=== PATIENT | female | born 1980 | race Caucasian/White ===

== ENCOUNTER 2025-07-09 11:53 | Emergency (ER) | payer OTHER, SELFPAY ==
--- OUTSIDE RECORDS SUMMARY | 2025-03-29 03:47 | XMS_ITS | Continuity of Care Document ---
Author Organization [facility], [facility] Address [address] [place] [address] Phone Care Team Providers Care Watch Guard Gate Name Role Phone Shayna Mon OD Unavailable Unavailabl e Allergies, Adverse Reactions, Alerts Substance Reaction Status Criticality No Known Allergies Active No Inform ation Medications Medication Instructions Dosage Effective Dates (start - stop) Status Comments losartan 25 mg tablet take 1 tablet by o ral route every day 25 MG - Active spironolactone 25 mg tablet take 1 tablet by oral route every day 25 MG - Active metformin 500 mg tablet take 1 tablet by oral route 2 times every day with morning and evening meals 500 MG - Active escitalopram 5 mg tablet take 1 tablet by oral route every day 5 MG - Active Procedures Procedure Date REFRACTION EYE EXAM NEW PATIENT Advance Directives Directive Yes / No Effective Date File Name No Information Encounters Encounter Description Practice Location Reason(s) For Visit Diagnoses Date Provider Providers Copied on Encounter [facility], [address] [place] [address], [id number] , [place] tel:[phone] [facility] No Information Yaa Corrla. [address], [place], [place], [id number], [place]. tel:[phone] [facility], [facility], [address] [place] [address], [id number] , tel:[phone] [facility] vision exam (chief complaint) Myopia, bilateralPresbyopi aPrediabetesLong term (current) use of oral hypoglycemic drugs Yaa Corral. [address], [place], [place], [id number], [place]. tel:[phone] Referring Provider: Shayna Montilla, [address], [place], [address]. tel:[phone] Family History Family Member Type Diagnosis Age At Onset Maternal grandmother Problem Cataracts Mother Problem Diabetes mellitus Problem No family history of Macular degeneration Problem No family history of [place] a Mother Problem Hypertension Payers Payer name Insurance type Covered democrat ID Mikal briceño(s) [employer] CI [id number] Social History Type Description Quantity Date Captured Comments Sex Female Smoking Status No Information Chief Complaint And Reason For Visit No Information Reason For Referral Reason For Referral No Information History Of Present Illness Encounter Date Complaint History Of Prese nt Illness vision exam The 44 year old patient presents for vision exam. Pt states DVA and NVA is a little blurry sc. Pt has worn CL and gls in the past, does not have them. Pt is not wanting to wear CL anymore. Pt denies pain or discomfort and is not using any AT or eye meds. Pt is wanting only SV gls. Pt is Prediabetic and treats with oral meds. Pt does not check BS at home. Pt does not have anyone to send letter to. Functional Status Date Functional Assessmen t No Information Instructions Date Instruction Additional Julesr stevo Impression/Plan Assessments Type Assessment Date No Information Patient Care Teams Name Effective Dates (start - stop) Status Members No Information
--- NOTE | ~2025-07-09 | CT_ITS ---
EXAMINATION: CT abdomen pelvis w con DATE: 07/09/2025 14:22 INDICATION: Left lower quadrant abdominal pain TECHNIQUE: Computed tomography (CT) of the abdomen and pelvis was performed with 100 cc Omnipaque 350 intravenous contrast. The dose-length product was 1293.08 mGy-cm. Automated exposure control and iterative reconstruction technique were employed. COMPARISON: None. FINDINGS: The liver, spleen, pancreas, adrenal glands and kidneys are unremarkable. Gallbladder is present. Centered in the pelvis there heart 2 large cystic lesions located centrally in the pelvis exerting mass effect on the urinary bladder. Larger cyst located superiorly measures 17.4 cm by a thin septation from the smaller cyst which measures 6.3 cm. The cysts appear predominantly simple in character without significant internal septations, mural nodularity or calcifications. Adjacent bowel loops are displaced but not obstructed. No ascites or lymphadenopathy. No significant vascular abnormality. IMPRESSION: 1. Large central pelvic cystic lesions, largest component measuring 17.4 cm. This mass exerts mass effect on the bladder. No worrisome internal complexity is identified. Differential diagnosis includes benign ovarian cyst, serous or mucinous cystadenoma, mesenteric or omental cyst. Consider follow-up pelvic ultrasound as clinically warranted. Reviewed, dictated and finalized at location [facility]. IMPRESSION: 1. Large central pelvic cystic lesions, largest component measuring 17.4 cm. Th is mass exerts mass effect on the bladder. No worrisome internal complexity is identified. Differential diagnosis includes benign ovarian cyst, serous or muci nous cystadenoma, mesenteric or omental cyst. Consider follow-up pelvic ultraso und as clinically warranted.
[2025-07-09 12:08] VITALS: BP 120/91; PULSE 72; RESP 16; TEMP 36.2; O2SAT 96
--- NOTE | 2025-07-09 12:23 | ED_ITS ---
HPI - Abdominal Pain General Chief Complaint: Abdominal Pain Stated Complaint: Ovarian Time Seen by Provider: 07/09/25 12:22 Source: patient Mode of arrival: ambulatory Limitations: no limitations History of Present Illness HPI narrative: Patient is a 44-year-old female with some left lower quadrant abdominal pain for the past day. She has known bilateral ovarian cysts with PCOS. She has a plan in the upcoming weeks to have cysts removed surgically. She has associated nausea. MD elicited complaint: abdominal pain ( Left lower quadrant) Pertinent past history: kidney stones and other ( PCOS) Onset (ago): day(s) ( 1) Pain Consistency: constant Location: LLQ and L flank Severity: moderate Pain scale (0-10): 6 Quality: cramping, stabbing, aching and fullness Radiation: none Migration to: no migration Exacerbating factors: movement Relieving factors: nothing Context: confirms history of similar episodes Associated symptoms: nausea Treatments prior to arrival: other ( none) Related Data Allergies Allergy/AdvReac Type Severity Reaction Status Date / Time No Known Allergies Allergy Verified 07/09/25 12:11 Review of Systems 2 Review of Systems: All systems reviewed & are unremarkable except as noted in HPI and below Constitutional: Constitutional: Reports no additional constitutional complaints Eyes: Eyes: Reports no additional eye complaints ENT: Reports system reviewed and no additional complaints, except as documented Cardiovascular: Cardiovascular: Reports no additional cardiovascular complaints Respiratory: Respiratory: Reports no additional respiratory complaints Gastrointestinal: Gastrointestinal: Reports no additional gastrointestinal complaints Genitourinary: Genitourinary: Reports no additional female genitourinary complaints Musculoskeletal: Musculoskeletal: Reports no additional musculoskeletal complaints Integumentary/Breasts: Skin/Breast: Reports system reviewed and no additional complaints, except as docu Neurologic: Reports system reviewed and no additional complaints, except as documented Psychiatric: Psychiatric: Reports no additional psychiatric complaints Endocrine: Endocrine: Reports no additional endocrine complaints Hematologic/Lymphatic: Hematologic/Lymphatic: Reports no additional hematologic/lymphatic complaints Allergic/Immunologic: Allergic/Immunologic: Reports no additional allergic/immunologic complaints Exam 2 Const: General: healthy appearing Nutritional Appearance: well nourished Orientation/consciousness: patient oriented x3 HENMT: Head: normal to inspection Ears: external ears normal F china/Nose/Sinus: Normal external nose present Eyes: Conjunctivae: conjunctivae normal Pupils: Equal, round and reactive pupils present EOM: EOMs intact bilaterally Neck: Neck: normal visual inspection Chest: Chest palpation & inspection: normal inspection of the chest Resp: Effort & Inspection: normal respiratory effort and not labored A uscultation: clear to auscultation bilaterally and no crackles Cardio: Rate: regular rate Rhythm: regular rhythm Heart sounds: no murmurs GI: Inspection: non-distended GI Palp: Yes Soft to palpation, Yes Tenderness to palpation present (GI) ( left lower quadrant), No Guarding due to palpation present (GI), No Rigid due to palpation, No Hernia present, No Palpable mass present and Yes Rebound tenderness present Auscultation: normal bowel sounds : General: Yes bladder normal to palpation Back/Spine/Pelvis: Back: No no CVA tenderness and CVA tenderness ( left) Skin: General skin exam: normal color Rashes: no rashes Wounds: no wounds Neuro: General: patient oriented x3, moves all extremities and no meningeal signs Cranial nerves: Yes Nystagmus not present Speech: normal speech G ait exam (Neuro): Normal gait present Extrem: General: normal to inspection Psych: Mental Status: mental status grossly normal Affect: normal affect Attitude: cooperative Course Vital Signs Vital signs: Vital Signs Temperature 36.2 C L 07/09/25 12:08 Pulse Rate 72 07/09/25 12:08 Respiratory Rate 16 07/09/25 12:08 Blood Pressure 120/91 H 07/09/25 12:08 Pulse Oximetry 96 07/09/25 12:08 Oxygen Delivery Room Air 07/09/25 12:08 Temperature 36.3 C L 07/09/25 14:40 Pulse Rate 65 07/09/25 15:27 Respiratory Rate 14 07/09/25 15:27 Blood Pressure 125/63 07/09/25 15:27 Pulse Oximetry 99 07/09/25 15:27 Oxygen Delivery Room Air 07/09/25 15:27 MDM - Abdominal Pain MDM Narrative Medical decision making narrative: patient is a 44-year-old female with left lower quadrant abdominal pain for the past day. She has a significant history of ovarian cysts with PCOS. We will get a GI workup at this time. CT scan. We cannot get ultrasound and if needed we will have to transfer. discussed large cyst with [facility] on-call gynecology and they accepted the patient for ER to ER transfer to get stat ultrasound to rule out torsion. Lab Data Attestation: I reviewed the patient's lab results. 07/09/25 13:18 07/09/25 13:18 Labs: Lab Results 07/09/25 07/09/25 Range/Units 12:20 13:18 WBC 11.5 H (4.8-10.8) K/mm3 RBC 4.92 (4.20-5.40) M/mm3 Hgb 13.6 (12.0-15.0) g/dL Hct 42.9 (35.0-49.0) % MCV 87.2 (78.0-102.0) fL MCH 27.6 (27.0-31.0) pg MCHC 31.7 L (32-36) g/dL RDW 14.9 H (11.6-14.4) % Plt Count 428 H (150-420) K/mm3 MPV 10.2 (9.2-11.8) fl Immature Gran % (Auto) 0.3 H (0.0-0.0) % Neut % (Auto) 66.1 (50.0-70.0) % Lymph % (Auto) 24.7 (18.0-42.0) % Walker % (Auto) 6.6 (2.0-11.0) % Eos % (Auto) 1.7 (1.0-6.0) % Baso % (Auto) 0.6 (0.0-1.0) % Lymph # (Auto) 2.83 (1.10-4.50) K/mm3 Walker # (Auto) 0.76 (0.10-0.90) K/mm3 Eos # (Auto) 0.19 (0.02-0.50) K/mm3 Baso # (Auto) 0.07 (0.00-0.10) K/mm3 Abs Immat Gran (auto) 0.04 H (0.00-0.00) K/mm3 Absolute Neuts (auto) 7.58 H (1.70-7.20) K/mm3 Absolute Nucleated RBC 0.00 (0.00-0.00) K/mm3 Nucleated RBC % 0.0 (0-0.0) % PT 10.4 (9.50-12.1) Seconds INR 0.9 APTT 27.9 (23.9-30.70) Sec Sodium 142 (137-145) mmol/L Potassium 3.9 (3.4-5.0) mmol/L Chloride 103 (98-107) mmol/L Carbon Dioxide 29 (22-30) mmol/L Anion Gap 10 (4-12) mmol/L BUN 11 (7-17) mg/dL Creatinine 0.85 (0.7-1.0) mg/dL Estim Creat Clear Calc 95 ml/min Estimated GFR > 60 (59 - ) Glucose 86 (65-110) mg/dL Calculated Osmolality 292 (285-295) mOsm/kg Lactic Acid 1.2 (0.4-2.0) mmol/L Calcium 9.8 (8.4-10.2) mg/dL Total Bilirubin 0.5 (0.2-1.3) mg/dL AST 27 (14-36) U/L ALT 27 (6-35) U/L Alkaline Phosphatase 71 (38-126) U/L Total Protein 7.8 (6.3-8.2) g/dL Albumin 4.8 (3.5-5.1) g/dL Lipase 142 (23-300) U/L Urine Color Yellow (Yellow) Urine Appearance Sl cloudy A (Clear) Urine pH 6.5 (5.0-8.0) Ur Specific [place] 1.020 (1.010-1.020) Urine Protein Trace H (Negative) Urine Glucose (UA) Negative (Negative) Urine Ketones 1+ H (Negative) Ur Blood (Man) Negative (Negative) Urine Nitrate Negative (Negative) Urine Bilirubin 1+ H (Negative) Urine Urobilinogen 2.0 H (0.2-1.0) mg/dL Leukocyte Esterase Rfl Trace H (Negative) KIANA/UL Urine RBC None seen (0-2) /hpf Urine WBC 0-3 (0-3) /hpf Ur Squamous Epith Cells Many H (Few) /hpf Urine Bacteria Trace (None) /hpf Urine Mucus Few H /lpf Urine Test Negative Imaging Data Attestation: I personally reviewed and interpreted this imaging study as follows: Radiologist's impression: ITS Impressions Abdomen/Pelvis CT 07/09/25 14:30 IMPRESSION: 1. Large central pelvic cystic lesions, largest component measuring 17.4 cm. This mass exerts mass effect on the bladder. No worrisome internal complexity is identified. Differential diagnosis includes benign ovarian cyst, serous or mucinous cystadenoma, mesenteric or omental cyst. Consider follow-up pelvic ultrasound as clinically warranted. Discharge Plan Discharge Clinical Impression: Ovarian cyst Qualifiers: Laterality: unspecified laterality Qualified Code(s): N83.209 - Unspecified ovarian cyst, unspecified side Patient Disposition: Home Condition: Stable Patient Language: Slovenian Follow-up/Referrals: UNKNOWN,DOCTOR [Non-Staff] Time of Disposition: 15:58
--- OUTSIDE RECORDS SUMMARY | 2025-07-09 13:12 | XMS_ITS | Clinical Summary ---
Author Organization [facility] Address [address] [place] [address] Care Team Providers Care Director Of Accounts Receivable Name Role Phone LatrellDario howardmadhuri KLEIN Primary Care Provider + Allergies No known active allergies Medications metFORMIN 500 MG tablet TAKE 2 TABLETS BY MOUTH IN THE MORNING AND 2 TABLETS BY MOUTH IN THE EVENING 2 Active spironolactone 50 MG tablet Take 1 tablet (50 mg total) by mouth 2 (two) times daily. 2 Active medroxyPROGESTER one (PROVERA) 10 MG tablet Take 1 tablet (10 mg total) by mouth daily. 5 Active tirzepatide (MOUNJARO) 5 MG/0.5ML injectionIndicat ions:Diabetes Mellitus Inject 5 mg into the skin once a week. Indications: Diabetes 2 mL 2 5 Active losartan (COZAAR) 50 MG tabletIndication s:Primary hypertension Take 1 tablet (50 mg total) by mouth daily. 90 tablet 5 Active losartan (COZAAR) 50 MG tabletIndication s:Primary hypertension Take 1 tablet (50 mg total) by mouth daily. 90 tablet 3 3 06/29/20 25 Discontinu ed(Reorder ) Active Problems Problem Noted Date Diagnosed Date Class 3 severe obesity with serious comorbidity and body mass index (BMI) of 40.0 to 44.9 in adult, unspecified obesity type 05/10/2025 Assessment & Plan (05/10/2025 9:43 AM CDT): Diabetes ([facility]) 05/04/2025 Overview (05/04/2025): My latest blood work showed results needing addressed. Assessment & Plan (05/10/2025 9:43 AM CDT): CMP, A1C, and Lipid Panel are up-to-date. Discussed treatment options. Will have her continue metformin as prescribed. Add Mounjaro 2.5 mg weekly. Follow-up with status update prior to fourth injection. If tolerating well will increase to 5 mg weekly at that time. Eye Exam: Overdue - instructed patient to schedule appointment. Foot Exam: Performed by self - encouraged to continue to observe for skin ulcers, sores, or skin break down. Instructed to call with any concerns. Low carb diet, regular exercise. Orders: tirzepatide (MOUNJARO) 2.5 MG/0.5ML injection; Inject 2.5 mg into the skin every 7 days. Indications: Diabetes Prediabetes 03/29/2025 Diabetes mellitus treated wi oral medication ([facility]) 03/29/2025 Primary hypertension 08/19/2022 Gastroesophageal reflux disease without esophagi tis 04/24/2022 PCOS (polycystic ovarian syndrome) 10/01/2016 Depression with anxiety 01/07/2016 Low back pain 05/23/2014 Overview (04/24/2022): Overview: ANTONY CLARK, DO Encounters Date Type Department Care Team Description 06/29/[address] [phone] Zora Mora APNP Refill Request 06/05/2025 Orders Only [address] [phone] Jason Hay MA 06/01/[address] [phone] Zora Mora APNP Refill Request (mounjaro) 05/04/2025 11:50 AM CDT Office Visit [address] [phone] Zora Mora APNP Follow Up (Pt present today for a follow up on lab work done with [facility], pt states her blood work shows she is diabetic ) 05/04/2025 Travel 04/14/[address] [phone] Zora Mora APNP Medication Request; Refill Request from Last 3 Months Immunizations Immunization Administration Dates Next Due Hepatitis B Pediatric 02/05/1999, 999,09/14/1998,09/14/1998,1997,07/30/1998 Influenza (Generic) 08/24/2019,08/24/2019 Influenza Adult (Generic) 08/26/2023,,08/15/2021,09/04/2016,2014 Family History Medical History Relation Comments Cancer Maternal Grandfather Diabetes Maternal Grandfather Cancer Maternal Grandmother Diabetes Maternal Grandmother Cancer Mother Diabetes Mother Relation Status Comments Maternal Grandfather Maternal Grandmother Mother Social History Tobacco Use Types Packs/Day Years Used Date Smoking Tobacco: Never Smokeless Tobacco: Never Tobacco Cessation:Counseling Given: No Alcohol Use Standard Drinks/Week Comments Yes 0 (1 standard drink = 0.6 oz pur e alcohol) 1-2 drinks a month PHQ-2 Answer Date Recorded Patient Health Questionnaire-2 Score 2 05/06/2023 Comments Unknown Sex and Gender Information Value Date Recorded Sex Assigned at Female 05/04/2025 11:52 AM CDT Legal Sex Female 9:05 PM EMPLOYMENT TRAINER Gender Identity Female 05/04/2025 11:52 AM CDT Sexual Orientation Not on file Last Filed Vital Signs Vital Sign Reading Time Taken Comments Blood Pressure 130/84 05/04/2025 11:54 AM CDT Pulse 74 05/04/2025 11:54 AM CDT Temperature 36.7 C (98.1 F) 05/04/2025 11:54 AM CDT Respiratory Rate 14 12/31/2024 5:27 PM EMPLOYMENT TRAINER Oxygen Saturation 99% 05/04/2025 11: 54 AM CDT Inhaled Oxygen Concentration - - Weight 119.5 kg (263 lb 6.4 oz) 025 11:54 AM CDT Height 170.2 cm (5' 7) 05/04/2025 11:5 4 AM CDT Body Mass Index 41.25 05/04/2025 11:54 AM CDT Plan of Treatment Upcoming Encounters Date Type Department Care Team (Late st Contact Info) Description 08/09/2025 9:50 AM CDT Office Visit [facility] - [place] [address] [place] [address] Zora Mora APNP [address] [place] [address] Health Maintenance Due Date Last Done Comments Cervical Cancer Screening Pap Smear (Age 30 to 64) Every 3 Years 1981 Kidney Health Evaluation 1981 Diabetes: Retinopathy Eye Exam 1999 Hepatitis C 1999 DTaP, Tdap and Td Vaccines (1 - Tdap) 2000 Pneumococcal Vaccine: Pediatrics (0 to 5 Years) and At-Risk Patients (6 to 49 Years) (1 of 2 - PCV) 2000 HPV Vaccines (1 - 3-dose SCDM series) 2008 Cervical Cancer Screening Pap with HPV Testing (Age 30 to 64) Every 5 Years 2011 Cervical Cancer Screening with HPV 2011 Annual Physical 05/06/2024 05/06/2023, 04/24/2022 COVID-19 Vaccine ( season) 2024 10/11/2021, 02/06/2021, 01/17/2021 PHQ-2 (Physician [place]) 11/16/2024 Hemoglobin A1C 09/29/2025 03/29/2025, 08/13/2023 Lipid Panel 03/29/2026 03/29/2025 Mammogram Screening 05/09/2026 05/09/2024 Hepatitis B Vaccines Completed 02/05/1999, 02/05/1999, 09/14/1998, Additional history exists Meningococcal B Vaccine Aged Out No l onger eligible based on patient's age to complete this topic Meningococcal Vaccine Aged Out No martir kady eligible based on patient's age to complete this topic RSV Immunizations Under 20 Months Aged Out No longer eligible based on patient's age to complete this topic Procedures Procedure Name Priority Date/Time Associated Diagnosis Comments LIPID PANEL Routine 03/29/2025 12:30 PM CDT Personal history of gestational diabetes Polycystic ovarian syndrome HEMOGLOBIN, GLYCOSYLATED Routine 03/29/2025 12:30 PM CDT Personal history of gestational diabetes Polycystic ovarian syndrome MAMMOGRAM GENERIC (SCAN ORDER) 05/09/2024 from Last 3 Months or Most Recently Relevant to Health Maintenance Results * (ABNORMAL) HEMOGLOBIN, GLYCOSYLATED (03/29/2025 12:30 PM CDT) HGB A1C 7.0(H) <5.7 % 03/29/2025 7:05 PM CDT [facility] ESTIMATED AVG GLUCOSE 154(H) 74 - 114 MG/DL 03/29/2025 7:05 PM CDT [facility] 03/29/2025 12:3 0 PM CDT us Rudolph Post MD LABORATORY Final Res ult [facility] [address] [place] [address], [id number] * (ABNORMAL) LIPID PANEL (03/29/2025 12:30 PM CDT) CHOLESTEROL 146 MG/DL 03/29/2025 6:20 PM CDT [facility] Comment:DESIRABLE: <200 TRIGLYCERIDES 116 MG/DL 03/29/2025 6:20 PM CDT [facility] Comment:<150 NORMAL HDL 44(L) >49 MG/DL 03/29/2025 6:20 PM CDT [facility] LDL (CALCULATED) 79 MG/DL 03/29/20 6:20 PM CDT [facility] Comment:<100 OPTIMAL VLDL CALCULATION 23 MG/DL 03/29/20 6:20 PM CDT [facility] Comment:REFERENCE RANGE NOT ESTABLISHED CHOL/HDL RATIO 3.3 03/29/2025 6:20 PM CDT [facility] Comment:REFERENCE RANGE NOT ESTABLISHED LDL/HDL 1.8 03/29/2025 6:20 PM CDT [facility] Comment:REFERENCE RANGE NOT ESTABLISHED NON HDL CHOLESTEROL 102 MG/DL 03/29/2025 6:20 PM CDT [facility] Comment:REFERENCE RANGE NOT ESTABLISHED 03/29/2025 12:3 0 PM CDT Rudolph Post MD LABORATORY Final Res ult [facility] [address] [place] [id number], [id number] * MAMMOGRAM GENERIC (SCAN ORDER) (05/09/2024) Anatomical Region Laterality Modality Other 05/09/2024 [facility] Scanned SCANNING Final Resu lt from Last 3 Months or Most Recently Relevant to Health Maintenance [place] [address] [employer] [facility] Care Teams Director Of Accounts Receivable Relationship Specialty Start Date End Date Zora Mora APNP [address] [place] [address] PCP - General NURSE PRACTITIONER 04/24/22
--- OUTSIDE RECORDS SUMMARY | 2025-07-09 13:12 | XMS_ITS | Clinical Summary ---
Author Organization [facility] Address [address] [place] [address] Care Team Providers Care Guest Services Officer Name Role Phone Unavailable Primary Care Provider Unavailabl e Source Comments This disclosure is being made pursuant to the [employer] program and maynot contain all information available regarding this patient.[facility] Allergies No known active allergies Medications clonazePAM (KLONOPIN) 1 MG tablet Take 0.5 mg by mouth 2 (two) times daily as needed for Anxiety. Active norethindrone-et hinyl estradiol (12/05) 1-20 MG-MCG per tablet Take 1 tablet by mouth daily. 84 tablet 0 10/01/2016 Active sertraline (ZOLOFT) 50 MG tablet Take 1 tablet by mouth daily. AT 9PM 30 tablet 0 01/14/2017 Active Active Problems Problem Noted Date Diagnosed Date PCOS (polycystic ovarian syndrome) 10/01/2016 Depression with anxiety 01/07/2016 Low back pain 05/23/2014 Overview (01/07/2016): Overview: ANTONY CLARK, Immunizations Immunization Administration Dates Next Due Influenza, inactivated, quad rivalent, 3 years and older, single dose syringe/vial 09/04/2016,09/13/2015 Social History Tobacco Use Types Packs/Day Years Used Date Smoking Tobacco: Never Smokeless Tobacco: Never Alcohol Use Standard Drinks/Week Comments Not Asked 0 (1 standard drink = 0.6 oz pur e alcohol) Comments Unknown Sex and Gender Information Value Date Recorded Sex Assigned at Not on file Legal Sex Female 7:04 PM CDT Gender Identity Not on file Sexual Orientation Not on file Last Filed Vital Signs Vital Sign Reading Time Taken Comments Blood Pressure 120/82 10/01/2016 7:11 AM [employer] Pulse 80 10/01/2016 7:11 AM [employer] Temperature 36.7 C (98.1 F) 10/01/2016 7:11 AM [employer] Respiratory Rate 12 05/23/2014 10:09 AM CDT Oxygen Saturation - - Inhaled Oxygen Concentration - - Weight 96.2 kg (212 lb) 10/01/2016 7:11 AM [employer] Height 171.5 cm (5' 7.5) 01/07/2016 12:40 PM CS T Body Mass Index 32.71 01/07/2016 12:40 PM [employer] Plan of Treatment Health Maintenance Due Date Last Done Comments Breast Cancer Screening-Mammogram 1981 Cervical Cancer Screening 1981 HPV 1981 Lab-Cholesterol Screening 1981 Lab-Hepatitis C Screening 1981 Annual Wellness Visit 1999 Hepatitis B Vaccine (1 of 3 - 19+ 3-dose series) 2000 Tetanus/Pertussis Vaccine Teen/Adult (1 - Tdap) 2000 Pap Smear 2002 HPV Vaccine (9-26yo & Shared Decision 27-45yo) (1 - 3-dose SCDM series) 2008 COVID-19 Vaccine (2023-2 5 season) 2024 Influenza Vaccine (#1) 2025 6, 09/13/2015 Zoster (Shingles) Vaccine 50 + (1 of 2) 2031 RSV Adult (1 - 1-dose 75+ series) 2056 HIB Vaccine Aged Out No longer eligi ble based on patient's age to complete this topic Hepatitis A Vaccine Aged Out No longe r eligible based on patient's age to complete this topic IPV Vaccine Aged Out No longer eligi ble based on patient's age to complete this topic Meningococcal Conjugate Vaccine Aged Out No longer eligible b ased on patient's age to complete this topic Pneumococcal Vaccines 0-49 yo Aged Out No longer eligible based on patient's age to complete this topic RSV < 20 Months Aged Out No longer el igible based on patient's age to complete this topic Insurance [employer]
[2025-07-09] MEDS: KETOROLAC 30 MG/ML VIAL (*BKC) IV PUSH (13:21)
[2025-07-09 13:24] LABS: Hematocrit 42.9 % (35.0-49.0); Hemoglobin 13.6 g/dL (12.0-15.0); Immature Granulocyte Percent A 0.3 % (0.0-0.0); Lymphocytes Absolute Auto 2.83 K/mm3 (1.10-4.50); Mean Corpuscular HGB Conc 31.7 g/dL (32-36); Mean Corpuscular Hemoglobin 27.6 pg (27.0-31.0); Mean Corpuscular Volume 87.2 fL (78.0-102.0); Nucleated Red Blood Cells Absolute Auto 0.00 K/mm3 (0.00-0.00); Nucleated Red Blood Cells Perc 0.0 % (0-0.0); Platelet Count Result 428 K/mm3 (150-420); Red Blood Count 4.92 M/mm3 (4.20-5.40); White Blood Count 11.5 K/mm3 (4.8-10.8)
[2025-07-09 13:25] LABS: Pregnancy On Board Control Positive
[2025-07-09 13:34] LABS: Add Urine Microscopic? YES; Appearance Urine Sl Cloudy (Clear); Glucose Urine UA Negative (Negative); Leukocyte Esterase Ur Trace LEU/UL (Negative); Nitrate Urine Negative (Negative); Specific Grav Ur 1.020 (1.010-1.020)
[2025-07-09 13:37] LABS: Alanine Aminotransferase 27 U/L (6-35); Albumin Level 4.8 g/dL (3.5-5.1); Alkaline Phosphatase 71 U/L (38-126); Anion Gap 10 mmol/L (4-12); Aspartate Amino Transferase 27 U/L (14-36); Bilirubin,Total 0.5 mg/dL (0.2-1.3); Blood Urea Nitrogen 11 mg/dL (7-17); Calcium 9.8 mg/dL (8.4-10.2); Carbon Dioxide 29 mmol/L (22-30); Chloride 103 mmol/L (98-107); Estimated CRCL calculation 95 ml/min; Estimated Glomerular Filt Rate > 60; Glucose 86 mg/dL (65-110); Lipase 142 U/L (23-300); Osmolality Calculated 292 mOsm/kg (285-295); Potassium 3.9 mmol/L (3.4-5.0); Sodium 142 mmol/L (137-145); Total Protein 7.8 g/dL (6.3-8.2)
[2025-07-09 13:40] LABS: INR 0.9; Partial Thromboplastin Time 27.9 Sec (23.9-30.70); Prothrombin Time 10.4 Seconds (9.50-12.1)
[2025-07-09 14:40] VITALS: BP 108/64; PULSE 67; RESP 14; TEMP 36.3; O2SAT 99
[2025-07-09 15:27] VITALS: BP 125/63; PULSE 65; RESP 14; O2SAT 99
[2025-07-09 17:20] VITALS: BP 121/69; PULSE 72; RESP 16; TEMP 37.2; O2SAT 97
[2025-07-09 17:29] VITALS: BP 121/81; PULSE 73; RESP 18; O2SAT 97
--- NOTE | 2025-07-13 13:54 | PC.NURSE ---
final urine culture reviewed. enterococcus faecalis isolated. pt was not dx with uti. erp reviewed culture report. new rx for macrobid 100mg bid for [address] smith. new rx called in to [facility] [place]. pt notified of new order. instructed to take new rx and f/u with pmd. pt voices understanding
== END 2025-07-09 17:20 | disposition short-term general hospital (02) ==
PROVIDERS: Emergency Provider Emergency Medicine
DX: N83.209 Unspecified ovarian cyst, unspecified side (principal)
CPT/HCPCS: 36415; 74177; 80053; 81001; 81025; 83605; 83690; 85025; 85610; 85730; 87086; 87186; 96374; 99284; J1885; Q9967